=== PATIENT | male | born 1950 ===

== ENCOUNTER 2023-02-20 06:17 | Day surgery (SDC) | payer OTHER | END 2023-02-20 09:30 | disposition home or self-care (01) | LOC: AMB-ENDOS 06:17 | PROVIDERS: ATTEND Colon & Rectal Surgery | DX: D12.4 Benign neoplasm of descending colon (principal); K64.2 Third degree hemorrhoids; K58.9 Irritable bowel syndrome, unspecified; K57.30 Diverticulosis of large intestine without perforation or abscess without bleeding; Z86.010 Personal history of colon polyps; Z20.822 Contact with and (suspected) exposure to COVID-19 ==